=== PATIENT | male | born 1950 | race Caucasian/White ===

== ENCOUNTER 2020-02-24 05:52 | Day surgery (SDC) | payer MEDICARE ==
[~2020-02-24] VITALS: Ht 170.2 cm; Wt 88.7 kg
[2020-02-24 06:33] VITALS: BP 147/78
[2020-02-24] MEDS ORDERED: MULT-658 PO (06:38)
[2020-02-24] MEDS ORDERED: LOSA1TAB2 PO (06:38)
[2020-02-24] MEDS ORDERED: LOVA40TA2 PO (06:38)
[2020-02-24] MEDS ORDERED: ASPI-496 PO (06:38)
[2020-02-24] MEDS ORDERED: CARV12.52 PO (06:38)
[2020-02-24] MEDS ORDERED: BUPR150T6 PO (06:38)
[2020-02-24] MEDS ORDERED: SODIUM CHLORIDE 0.9% 1,000 ML IV SCH (07:00)
[2020-02-24 07:12] LABS: BASOPHILS # (AUTO) 0.04 x10^3/uL (0-0.1); BASOPHILS % (AUTO) 0 % (0-1); EOSINOPHILS # (AUTO) 0.29 x10^3/uL (0-0.4); EOSINOPHILS % (AUTO) 3 % (1-7); LYMPHOCYTES # (AUTO) 3.07 x10^3/uL (1-3.4); LYMPHOCYTES % (AUTO) 28 % (22-44); MD NO; MEAN CORPUSCULAR HEMOGLOBIN 31.1 pg (27.5-34.5); MEAN CORPUSCULAR HGB CONC 33.1 g/dL (33.2-36.2); MONOCYTES # (AUTO) 0.68 x10^3/uL (0.2-0.8); MONOCYTES % (AUTO) 6 % (2-9); NEUTROPHILS # (AUTO) 6.81 x10^3/uL (1.8-6.8); NEUTROPHILS % (AUTO) 63 % (42-75); PLATELET COUNT 223 x10^3/uL (130-400); RED BLOOD COUNT 4.67 x10^6/uL (4.38-5.82); RED CELL DISTRIBUTION WIDTH 13.1 % (9.4-14.8)
[2020-02-24] MEDS ORDERED: MIDAZOLAM 1 MG/ML, 5ML ONE ×2 (08:02)
[2020-02-24] MEDS ORDERED: FLUMAZENIL 0.1 MG/1 ML, 5ML ONE (08:02)
[2020-02-24] MEDS ORDERED: FENTANYL PF 100 MCG/2ML ONE (08:02)
[2020-02-24] MEDS ORDERED: NALOXONE 1 MG/ML, 2ML ONE (08:03)
== END 2020-02-24 09:45 | disposition home or self-care (01) ==
LOC: OUT 05:52
PROVIDERS: ATTEND Internal Medicine Hematology & Oncology
DX: D72.828 Other elevated white blood cell count (principal); I10 Essential (primary) hypertension; I25.2 Old myocardial infarction; G47.30 Sleep apnea, unspecified; F17.210 Nicotine dependence, cigarettes, uncomplicated; Z79.899 Other long term (current) drug therapy; Z88.0 Allergy status to penicillin; Z95.5 Presence of coronary angioplasty implant and graft; Z80.1 Family history of malignant neoplasm of trachea, bronchus and lung
CPT/HCPCS: 36415; 38222; 77012; 85025; 85060; 85097; 88237; 88264; 88280; 88305; 88311; 88313; 99156; 99157; J2250; J3010; J7030; J2310